=== PATIENT | female | born 1940 | race Caucasian/White ===

== ENCOUNTER → 2017-04-08 | Outpatient (CLI) | payer MEDICARE, OTHER ==
[~2017-04-08] MED LIST: CARDIZEM CD 30300 MG PO; CLARITIN 1010 MG/TAB PO; CO Q-1075 MG PO; CRANBERRY1000 MG PO; LASIX 20MG TABL20 MG PO; MUCINEX1200 MG PO; SYNTHROID 0.0.025 MG PO
== END ==
LOC: MC.RAD 13:40
DX: Z12.31 Encounter for screening mammogram for malignant neoplasm of breast (principal)

== ENCOUNTER → 2018-06-16 | Outpatient (CLI) | payer MEDICARE, OTHER | LOC: MC.RAD 14:16 | DX: Z12.31 Encounter for screening mammogram for malignant neoplasm of breast (principal) ==

== ENCOUNTER 2020-12-19 16:00 | Outpatient (RCR) | payer MEDICARE, OTHER | END 2020-12-20 | disposition still patient (30) | LOC: WSPT | DX: M25.552 Pain in left hip (principal); L71.9 Rosacea, unspecified; E03.9 Hypothyroidism, unspecified; I10 Essential (primary) hypertension ==

== ENCOUNTER 2021-01-19 14:15 | Outpatient (RCR) | payer MEDICARE, OTHER | END 2021-03-21 | disposition home or self-care (01) | LOC: WSPT | DX: M25.552 Pain in left hip (principal); I10 Essential (primary) hypertension ==

== ENCOUNTER → 2023-04-25 | Outpatient (RCR) | payer MEDICARE, OTHER | END | disposition home or self-care (01) | LOC: WSPT | DX: M54.16 Radiculopathy, lumbar region (principal); Z96.641 Presence of right artificial hip joint ==